=== PATIENT | female | born 1990 | race Caucasian/White ===

== ENCOUNTER 2020-03-15 16:15 | Emergency (ER) | payer OTHER | END 2020-03-15 16:27 | disposition home or self-care (01) | LOC: JVIRT 16:15 | DX: Z03.818 Encounter for observation for suspected exposure to other biological agents ruled out (principal) | CPT/HCPCS: C9803; Q3014-GT; U0003 ==

== ENCOUNTER 2020-03-21 16:36 | Emergency (ER) | payer OTHER | END 2020-03-21 16:41 | disposition home or self-care (01) | LOC: JVIRT 16:36 | DX: U07.1 COVID-19 (principal) | CPT/HCPCS: C9803; Q3014-GT; U0003 ==

== ENCOUNTER 2020-08-29 10:59 | Emergency (ER) | payer OTHER ==
[2020-08-29 11:14] VITALS: BP 152/100; PULSE 75; TEMP 100; BMI 24.7
[2020-08-29] MEDS ORDERED: ACETAMINOPHEN 500 MG TABLET (FP) PO ONE (12:11)
[2020-08-29 12:20] LABS: BASO % 2.3 % (0-2.0); EOS % 0.5 % (0-4.5); HEMATOCRIT 43.8 % (32.4-45.2); HEMOGLOBIN 14.2 GM/dl (10.7-15.3); LYMPH % 31.7 % (8-40); MCH 30.2 pg (25.7-33.7); MCHC 32.4 g/dl (32.0-36.0); MEAN CELL VOLUME 93.2 fl (80-96); MEAN PLT VOLUME 8.7 fl (7.5-11.1); MONO % 7.6 % (3.8-10.2); NEUT % 57.9 % (42.8-82.8); PLATELET COUNT 266 K/MM3 (134-434); RDW 12.4 % (11.6-15.6); WHITE BLOOD COUNT 6.5 K/mm3 (4.0-10.8)
[2020-08-29 12:24] LABS: ALBUMIN 4.3 g/dl (3.4-5.0); BILIRUBIN,TOTAL 0.8 mg/dl (0.2-1); CALCIUM 9.1 mg/dl (8.5-10); CREATININE 0.7 mg/dl (0.55-1.3); TOT PROT 7.6 g/dl (6.4-8.2)
[2020-08-29 12:24] LABS: HCG,QUALITATIVE URINE Negative
[2020-08-29] MEDS ORDERED: ACETAMINOPHEN 500 MG TABLET (FP) ONE (12:26)
[2020-08-29 12:43] LABS: EPITHELIAL CELLS FEW /hpf
== END 2020-08-29 14:35 | disposition home or self-care (01) ==
LOC: FER 10:59
DX: U07.1 COVID-19 (principal)
CPT/HCPCS: 36415; 70450-TC; 80053; 81003; 81015; 84703; 85025; 87086; 87804; 99285-25; C9803; U0003; U0005

== ENCOUNTER 2022-10-24 09:24 | Emergency (ER) | payer OTHER ==
[2022-10-24 09:44] VITALS: BP 134/86; PULSE 73; RESP 16; TEMP 98.2; BMI 24.8
== END 2022-10-24 10:45 | disposition home or self-care (01) ==
LOC: FER 09:24
DX: R21 Rash and other nonspecific skin eruption (principal); L01.00 Impetigo, unspecified
CPT/HCPCS: 87070; 87205; 99283-25

== ENCOUNTER 2023-12-08 16:53 | Emergency (ER) | payer OTHER ==
[2023-12-08] MEDS ORDERED: ACETAMINOPHEN 325 MG TABLET (FP) ONE (17:05)
[2023-12-08 17:10] VITALS: BP 117/97; PULSE 73; RESP 18; TEMP 98.8; BMI 27.4
[2023-12-08] MEDS: ACETAMINOPHEN 325 MG TABLET (FP) PO ONE (17:10)
== END 2023-12-08 18:25 | disposition home or self-care (01) ==
LOC: FER 16:53
DX: S93.402A Sprain of unspecified ligament of left ankle, initial encounter (principal); X50.1XXA Overexertion from prolonged static or awkward postures, initial encounter
CPT/HCPCS: 73610-TC-LT-FY; 73630-TC-LT; 99283-25

== ENCOUNTER 2024-04-28 15:34 | Emergency (ER) | payer OTHER ==
[2024-04-28 15:59] VITALS: BP 130/70; PULSE 79; RESP 20; TEMP 98.4; BMI 28.2
== END 2024-04-28 18:24 | disposition left against medical advice (07) ==
LOC: FER 15:34
DX: R05.9 Cough, unspecified (principal); Z20.822 Contact with and (suspected) exposure to COVID-19
CPT/HCPCS: 0241U-QW; 71046-TC-FY; 99284-25